=== PATIENT | female | born 1990 | race Caucasian/White ===

== ENCOUNTER 2019-07-12 16:48 | Emergency (ER) | payer SELFPAY ==
[~2019-07-12] VITALS: Ht 162.6 cm; Wt 58.0 kg
[2019-07-12] MEDS ORDERED: SODIUM CHLORIDE 0.9% 1,000 ML IV ONE (17:53)
[2019-07-12] MEDS ORDERED: ONDANSETRON HCL 4MG/2ML INJ IV STA ×2 (17:53→18:03)
[2019-07-12 18:00] LABS: BASOPHILS % 0.2 % (0.0-2.0); EOSINOPHILS % 0.1 % (0.0-5.0); HEMATOCRIT. 41.4 % (36.0-48.0); HEMOGLOBIN. 14.1 g/dL (12.0-16.0); LYMPHOCYTES % 18.6 % (20.0-50.0); MEAN CORPUSCULAR HEMOGLOBIN 29.6 pg (28.0-32.0); MEAN CORPUSCULAR VOLUME 87.1 fL (81.0-99.0); MEAN PLATELET VOLUME 9.8 fl (7.4-10.4); MONOCYTES % 3.6 % (2.0-8.0); NEUTROPHILS % 77.5 % (40.0-76.0); PLATELET 207 x1000/uL (130-400); RED BLOOD CELL COUNT 4.75 mill/uL (4.2-5.4); RED CELL DISTRIBUTION WIDTH 13.1 % (11.6-14.6)
[2019-07-12 18:03] LABS: CHLORIDE 110 mEq/L (98-107)
[2019-07-12] MEDS ORDERED: ACETAMINOPHEN 325MG TABLET PO ONE (18:15)
[2019-07-12] MEDS ORDERED: LORAZEPAM 2MG/ML CPJ IV ONE (18:15)
[2019-07-12 18:20] LABS: ETHANOL BLOOD < 10 mg/dL
[2019-07-12 18:28] LABS: HCG SCREEN NEGATIVE
[2019-07-12 20:18] LABS: *AMPHETAMINES SCREEN URINE NEGATIVE (NEGATIVE); *BARBITURATES SCREEN URINE NEGATIVE (NEGATIVE); *BENZODIAZEPINES SCREEN URINE NEGATIVE (NEGATIVE); METHADONE URINE SCREEN NEGATIVE (NEGATIVE); OPIATES URINE SCREEN NEGATIVE (NEGATIVE); PHENCYCLIDINE URINE SCREEN NEGATIVE (NEGATIVE)
[2019-07-12 20:19] LABS: *COCAINE SCREEN URINE NEGATIVE (NEGATIVE)
[2019-07-12 20:27] LABS: CANNABINOID URINE SCREEN PRESUMTIVE POSITIVE (NEGATIVE)
[2019-07-12 22:00] VITALS: BP 120/78
== END 2019-07-12 22:00 | disposition home or self-care (01) ==
LOC: ER 16:48
DX: E86.0 Dehydration (principal); N39.0 Urinary tract infection, site not specified; F41.0 Panic disorder [episodic paroxysmal anxiety]
CPT/HCPCS: 36415; 80053; 80305; 80320; 81025; 83690; 84703; 85025; 93005; 96361; 96374; 96375; 99284; J2060; J2405; J7030; G0480